=== PATIENT | female | born 1940 | race Caucasian/White ===

== ENCOUNTER → 2018-10-21 13:38 | Outpatient (CLI) | payer MEDICARE, SELFPAY ==
--- NOTE | 2018-10-21 14:51 | NEURO ---
NCS and/or EMG Patient Report Ordering Doctor: Quyen Artis DATE OF SERVICE: 10/21/18 Marily Yancey is a 78-year-old female presents for electrodiagnostic testing of the upper limbs. She reports numbness and tingling in the hands, significantly worse on the right side. It has been worsening over the past year. Electrodiagnostic findings: Right median motor nerve demonstrates prolonged distal latency with normal amplitude and reduced conduction velocity. Normal left median motor response. Ulnar motor response is normal bilaterally. Prolonged right median F wave. Prolonged right median sensory latency at the wrist. Prolonged left median sensory latency at the wrist. Normal ulnar and radial sensory responses. Needle EMG, muscles tested in upper limb showed no evidence of denervation with normal motor unit action potentials. Electrodiagnostic impression: This is an abnormal study in the upper limbs. 1. Electrodiagnostic findings demonstrate bilateral median mononeuropathy. This is consistent with a moderate to advanced right carpal tunnel syndrome and a mild left carpal tunnel syndrome. If there are any questions please do not hesitate to contact me
== END ==
PROVIDERS: Family Provider Internal Medicine; PCP Internal Medicine; Referring Provider Internal Medicine; Visit Provider Internal Medicine
DX: R20.0 Anesthesia of skin (principal); M79.642 Pain in left hand; M79.641 Pain in right hand
CPT/HCPCS: 95886; 95912